=== PATIENT | female | born 1995 | race Hispanic/Latino ===

== ENCOUNTER 2021-08-09 09:51 | Outpatient (CLI) | payer OTHER, SELFPAY ==
--- NOTE | ~2021-08-09 | US_ITS ---
EXAMINATION: US venous doppler [facility] DATE: 08/09/2021 10:30 INDICATION: Lower limb swelling TECHNIQUE: Grayscale ultrasound images without and with compression and Doppler ultrasound images of the left lower extremity veins were obtained. COMPARISON: None. FINDINGS: The visualized portions of left common femoral vein, profunda (deep) femoral vein, femoral vein, popl iteal vein, peroneal veins, posterior tibial veins, gastrocnemius vein, lesser saphenous vein and gre ater saphenous vein outflow are patent. IMPRESSION: 1. No deep venous thrombosis in the left lower limb. Reviewed, dictated and finalized at location A.
== END 2021-08-09 09:52 | disposition home or self-care (01) ==
PROVIDERS: Visit Provider Obstetrics & Gynecology
DX: R60.0 Localized edema (principal)
CPT/HCPCS: 93971

== ENCOUNTER 2021-08-16 09:06 | Observation (INO) | payer OTHER, SELFPAY ==
[2021-08-16 09:31] VITALS: BP 90/68; PULSE 95
[2021-08-16 09:32] VITALS: BP 115/60; PULSE 105
[2021-08-16 09:33] VITALS: TEMP 36.2
[2021-08-16 09:45] VITALS: RESP 16; TEMP 36.2; BMI 38.0
--- NOTE | 2021-08-16 09:45 | OBADM ---
This patient, Aliyah Vegas, admitted to the OB room 116 for observation for suprapubic pain. Patient/family oriented to hospital policies and general routines including ID bracelet, bed and alarms, visiting hours, pain management, procedures, bathroom and other care routines, personal items, smoking policy, room service/diet, and visiting hours. Patient/Family are encouraged to report perceived risks to care and to ask questions if they do not understand what they are told or what they should do.
[2021-08-16 10:01] VITALS: BP 105/54; PULSE 88
[2021-08-16 10:57] LABS: Appearance Urine Clear (Clear); Bilirubin Urine Negative (Negative); Blood Urine Negative (Negative); Color Urine Yellow (Yellow); Glucose Urine UA Negative (Negative); Ketones Urine Negative (Negative); Leukocyte Esterase Ur 1+ LEU/UL (Negative); Nitrate Urine Negative (Negative); Protein Urine Negative (Negative); Specific Grav Ur 1.015 (1.001-1.035); Urobilinogen Urine 0.2 mg/dL (<2.0)
[2021-08-16 11:02] VITALS: BP 111/64; PULSE 88
[2021-08-16 11:14] LABS: Mucus Urine Rare /lpf; RBC Urine 0-2 /hpf (0-2); Squamous Epithelial Cell Urine Moderate /hpf (Few); WBC Urine 0-3 /hpf
[2021-08-16 11:18] LABS: Add Urine Microscopic? YES
--- NOTE | 2021-09-09 22:02 | PM.OBTRLD ---
OB - Triage/Final Diagnosis Visit Information Comments/Additional reasons for admission: I have assessed the risk for this patient, Aliyah Fonseca, and determined that she would benefit from observation care. Evaluation Laboratory results: Laboratory Tests 08/16/21 10:40 Urine Color Yellow Urine Appearance Clear Urine pH 7.0 Ur Specific [place] 1.015 Urine Protein Negative Urine Glucose (UA) Negative Urine Ketones Negative Ur Blood (Man) Negative Urine Nitrate Negative Urine Bilirubin Negative Urine Urobilinogen 0.2 Leukocyte Esterase Rfl 1+ H Urine RBC 0-2 Urine WBC 0-3 Ur Squamous Epith Cells Moderate H Urine Mucus Rare Final Diagnosis (1) Abdominal pain: Code(s): R10.9 - Unspecified abdominal pain Status: Acute
== END 2021-08-16 12:01 | disposition home or self-care (01) ==
PROVIDERS: Admitting Provider Obstetrics & Gynecology; Visit Provider Obstetrics & Gynecology
DX: O26.892 Other specified pregnancy related conditions, second trimester (principal); R10.9 Unspecified abdominal pain; Z3A.26 26 weeks gestation of pregnancy
CPT/HCPCS: 81001; G0378; G0379

== ENCOUNTER 2021-10-08 17:02 | Outpatient (CLI) | payer OTHER, SELFPAY ==
--- NOTE | 2021-10-08 17:02 | OBADM ---
This patient, Aliyah Fonseca, admitted to the OB room OB Post 116 for observation. Patient/family oriented to hospital policies and general routines including ID bracelet, bed and alarms, visiting hours, pain management, procedures, bathroom and other care routines, personal items, smoking policy, room service/diet, and visiting hours. Patient/Family are encouraged to report perceived risks to care and to ask questions if they do not understand what they are told or what they should do.
[2021-10-08 17:32] VITALS: BP 124/68; PULSE 94
[2021-10-08 17:39] VITALS: BMI 38.7
[2021-10-08 17:39] LABS: Basophils Percent Auto 0.3 % (0.2-1.2); Eosinophils Absolute Auto 0.1 K/mm3 (0-0.3); Eosinophils Percent Auto 0.4 % (0-4.4); Hematocrit 32.4 % (37.0-47.0); Hemoglobin 10.5 g/dL (12.0-15.0); Immature Granulocyte Absolute 0.19 K/mm3 (0.00-0.031); Immature Granulocyte Percent A 1.4 % (0-0.5); Lymphocytes Percent Auto 14.5 % (18.3-44.2); Mean Corpuscular HGB Conc 32.4 g/dl (32-36); Mean Corpuscular Hemoglobin 26.5 pg (26-34); Mean Corpuscular Volume 81.8 fl (80-100); Mean Platelet Volume 9.6 fl (7.4-10.4); Monocytes Absolute Auto 0.7 K/mm3 (0.1-0.6); Monocytes Percent Auto 5.4 % (2.6-8.5); Neutrophils Absolute Auto 10.8 K/mm3 (1.3-6.7); Platelet Count Result 238 k/mm3 (150-375); Red Blood Count 3.96 M/mm3 (4.2-5.4); Red Cell Distribution Width 15.8 % (11.5-14.5); White Blood Count 13.8 K/mm3 (4.5-10.0)
[2021-10-08 17:40] LABS: Appearance Urine Slightly Cloudy (Clear); Bilirubin Urine Negative (Negative); Blood Urine Negative (Negative); Color Urine Yellow (Yellow); Glucose Urine UA Negative (Negative); Ketones Urine 1+ mg/dL (Negative); Leukocyte Esterase Ur 2+ LEU/UL (NEGATIVE); Nitrate Urine Negative (Negative); Protein Urine Negative (Negative); Specific Grav Ur 1.025 (1.001-1.035); Urobilinogen Urine 0.2 mg/dL (<2.0); pH Urine 6.5 (5.0-9.0)
[2021-10-08 17:44] LABS: Bacteria Urine Trace /hpf; Mucus Urine Rare /lpf; RBC Urine 0-2 /hpf (0-2); Squamous Epithelial Cell Urine Moderate /hpf (Few); WBC Urine 16-20 /hpf (0-3)
[2021-10-08 17:46] VITALS: BP 117/99; PULSE 150
[2021-10-08 17:47] LABS: Alanine Aminotransferase 58 U/L (6-35); Albumin Level 3.4 g/dL (3.5-5.1); Alkaline Phosphatase 109 U/L (38-126); Anion Gap 9 mmol/L (8-16); Aspartate Amino Transferase 29 U/L (14-36); Bilirubin,Total 0.3 mg/dL (0.2-1.3); Blood Urea Nitrogen 8 mg/dL (7-17); Calcium 8.8 mg/dL (8.4-10.2); Carbon Dioxide 21 mmol/L (22-30); Chloride 106 mmol/L (98-107); Estimated Glomerular Filt Rate > 60; Glucose 119 mg/dL (65-110); Sodium 136 mmol/L (137-145); Uric Acid 5.1 mg/dL (2.5-7.5)
[2021-10-08 17:51] LABS: Add Urine Microscopic? YES
[2021-10-08 18:01] VITALS: BP 107/60; PULSE 86
[2021-10-08 18:16] VITALS: BP 111/67; PULSE 91
[2021-10-08 18:17] VITALS: BP 111/67; PULSE 91
[2021-10-08 18:21] LABS: Creatinine Urine 96.6 mg/dL; Total Protein Urine Random 7 mg/dL; Ur Ttl Prot Creatinine Ratio 0.07 mg/mg (0-0.20)
[2021-10-08 18:31] VITALS: BP 105/53; PULSE 89
== END 2021-10-08 18:48 | disposition home or self-care (01) ==
LOC: ANHOBOP 17:07 → ANHOBPP 10-14 06:22
PROVIDERS: Obstetrics & Gynecology; Visit Provider Obstetrics & Gynecology
DX: O13.9 Gestational [pregnancy-induced] hypertension without significant proteinuria, unspecified trimester (principal); Z3A.00 Weeks of gestation of pregnancy not specified
CPT/HCPCS: 36415; 59025; 80053; 81001; 82570; 84156; 84550; 85025; 87086; 87088; 99199

== ENCOUNTER 2021-10-18 16:01 | Outpatient (CLI) | payer OTHER, SELFPAY ==
--- NOTE | ~2021-10-18 | US_ITS ---
EXAMINATION: US venous doppler [facility] DATE: 10/18/2021 16:40 INDICATION: Left lower limb swelling TECHNIQUE: Thomas scale images without and with compression and Doppler images of the left lower extrem ity veins were obtained. COMPARISON: 08/09/2021 FINDINGS: The left common femoral vein, profunda femoral vein, femoral vein, popliteal vein, peroneal trunk, posterior tibial veins, and greater saphenous vein are patent. IMPRESSION: 1. Patent left lower extremity veins. No evidence of deep venous thrombosis. Reviewed, dictated and finalized at location B.
== END 2021-10-18 16:02 | disposition home or self-care (01) ==
PROVIDERS: Visit Provider Obstetrics & Gynecology
DX: R60.0 Localized edema (principal)
CPT/HCPCS: 93971

== ENCOUNTER 2021-11-06 22:40 | Outpatient (CLI) | payer OTHER, SELFPAY ==
[2021-11-06 23:16] VITALS: BP 110/70; PULSE 101
[2021-11-06 23:22] LABS: Basophils Absolute Auto 0.1 K/mm3 (0.0-0.1); Basophils Percent Auto 0.4 % (0.2-1.2); Eosinophils Absolute Auto 0.1 K/mm3 (0-0.3); Eosinophils Percent Auto 0.6 % (0-4.4); Hematocrit 31.3 % (37.0-47.0); Hemoglobin 10.2 g/dL (12.0-15.0); Immature Granulocyte Percent A 1.6 % (0-0.5); Lymphocytes Absolute Auto 2.32 K/mm3 (0.9-3.2); Lymphocytes Percent Auto 18.3 % (18.3-44.2); Mean Corpuscular HGB Conc 32.6 g/dl (32-36); Mean Corpuscular Volume 79.6 fl (80-100); Mean Platelet Volume 9.6 fl (7.4-10.4); Monocytes Percent Auto 7.5 % (2.6-8.5); Neutrophils Absolute Auto 9.1 K/mm3 (1.3-6.7); Neutrophils Percent Auto 71.6 % (45.5-73.1); Platelet Count Result 214 k/mm3 (150-375); Red Blood Count 3.93 M/mm3 (4.2-5.4); Red Cell Distribution Width 15.8 % (11.5-14.5); White Blood Count 12.7 K/mm3 (4.5-10.0)
[2021-11-06 23:23] LABS: Appearance Urine Clear (Clear); Bilirubin Urine Negative (Negative); Blood Urine Negative (Negative); Glucose Urine UA Negative (Negative); Ketones Urine Negative (Negative); Leukocyte Esterase Ur 2+ LEU/UL (NEGATIVE); Nitrate Urine Negative (Negative); Protein Urine Negative (Negative); Specific Grav Ur 1.015 (1.001-1.035); Urobilinogen Urine 0.2 mg/dL (<2.0)
[2021-11-06 23:27] LABS: Bacteria Urine Trace /hpf; Squamous Epithelial Cell Urine Many /hpf (Few)
[2021-11-06 23:28] LABS: Add Urine Microscopic? YES; Color Urine Light Yellow (Yellow)
[2021-11-06 23:30] VITALS: BP 121/82; PULSE 90
[2021-11-06 23:32] LABS: Alanine Aminotransferase 21 U/L (6-35); Albumin Level 3.4 g/dL (3.5-5.1); Alkaline Phosphatase 122 U/L (38-126); Anion Gap 12 mmol/L (8-16); Aspartate Amino Transferase 19 U/L (14-36); Bilirubin,Total 0.2 mg/dL (0.2-1.3); Blood Urea Nitrogen 8 mg/dL (7-17); Calcium 8.9 mg/dL (8.4-10.2); Carbon Dioxide 20 mmol/L (22-30); Chloride 104 mmol/L (98-107); Creatinine Urine 23.8 mg/dL; Estimated Glomerular Filt Rate > 60; Glucose 99 mg/dL (65-110); Potassium 3.8 mmol/L (3.4-5.0); Sodium 136 mmol/L (137-145); Total Protein Urine Random 12 mg/dL; Uric Acid 4.1 mg/dL (2.5-7.5)
[2021-11-06 23:45] VITALS: BP 118/75; PULSE 85
[2021-11-07] MEDS: ACETAMINOPHEN 500 MG TABLET 1000 MG PO (00:08)
[2021-11-07 00:39] VITALS: BMI 38.9
== END 2021-11-07 00:30 | disposition home or self-care (01) ==
LOC: ANHOBOP 22:45 → ANHOBPP 22:45
PROVIDERS: Advanced Practice Midwife; Visit Provider Obstetrics & Gynecology
DX: O14.93 Unspecified pre-eclampsia, third trimester (principal); Z3A.38 38 weeks gestation of pregnancy
CPT/HCPCS: 36415; 59025; 80053; 81001; 82570; 84156; 84550; 85025; 87086; 99199; A9270

== ENCOUNTER 2021-11-08 08:45 | Outpatient (NON) | payer OTHER, SELFPAY ==
[2021-11-08 08:45] VITALS: BMI 39.6
[2021-11-08 09:15] LABS: Collection Time Urine 24 HOURS
[2021-11-08 09:20] LABS: Total Volume 24 Hour Urine 1300 ml
[2021-11-08 09:23] LABS: Total Protein Urine 24 Hr 143 mg/24hr (28-141); Total Protein Urine Random 11 mg/dL
[2021-11-08 09:24] LABS: Creatinine Clearance Urine 79.1 ml/min (75-125); Creatinine Urine 44.9 mg/dL; Patient Weight 189 Lbs
== END 2021-11-08 08:46 | disposition home or self-care (01) ==
LOC: ANHOBOP 08:58
PROVIDERS: Visit Provider Obstetrics & Gynecology
DX: R80.9 Proteinuria, unspecified (principal)
CPT/HCPCS: 81050; 82575; 84156

== ENCOUNTER 2021-11-11 11:36 | Outpatient (CLI) | payer OTHER, SELFPAY ==
[2021-11-11 12:12] LABS: Hematocrit 34.2 % (37.0-47.0); Hemoglobin 10.9 g/dL (12.0-15.0); Mean Corpuscular HGB Conc 31.9 g/dl (32-36); Mean Corpuscular Hemoglobin 25.7 pg (26-34); Mean Corpuscular Volume 80.7 fl (80-100); Mean Platelet Volume 9.9 fl (7.4-10.4); Platelet Count Result 243 k/mm3 (150-375); Red Blood Count 4.24 M/mm3 (4.2-5.4); Red Cell Distribution Width 15.9 % (11.5-14.5); White Blood Count 14.3 K/mm3 (4.5-10.0)
[2021-11-12 10:39] LABS: Rapid Plasma Reagin Non-Reactive (NonReactive)
== END 2021-11-11 11:37 | disposition home or self-care (01) ==
LOC: ANHLAB 11:38
PROVIDERS: Visit Provider Obstetrics & Gynecology
DX: O34.211 Maternal care for low transverse scar from previous cesarean delivery (principal); Z3A.39 39 weeks gestation of pregnancy
CPT/HCPCS: 36415; 85027; 86592; 86850; 86900; 86901

== ENCOUNTER 2021-11-12 11:16 | Inpatient (IN) | payer OTHER, SELFPAY ==
[2021-11-12] VITALS (51 sets, daily range): BP systolic 88–129; BP diastolic 43–93; PULSE 77–107; RESP 16–27; TEMP 36.3–36.7; O2SAT 98–100; BMI 39.2
--- NOTE | 2021-11-12 11:16 | LDADM ---
This patient, Aliyah Fonseca, was admitted to Labor/Delivery/Recovery 120 on 11/12/21 at 11:16. Plans for labor, pain management and were discussed with patient. Patient/family oriented to hospital policies and general routines including ID bracelet, bed and alarms, visiting hours, pain management, procedures, bathroom and other care routines, personal items, smoking policy, room service/diet and guest tray routines, security routines, and visiting hours. Patient/Family are encouraged to report perceived risks to care and to ask questions if they do not understand what they are told or what they should do. See OBIX for further documentation.
[2021-11-12] MEDS: LACTATED RINGERS 1,000 ML 999 ML IV CONT (12:04)
--- NOTE | 2021-11-12 12:56 | P.PNAN_ITS ---
Anes - Eval Pre Procedure Procedure: Operation Date: 11/12/21 13:30 Proposed Procedures p Repeat Section - Nini Bull MD Date/Time: 11/12/21 12:56 Surgeon: Dr. Bull Preop Diagnosis: Previous Section Pre Op Diagnosis: c/s Patient Data Age: 26 Gender: F Height: 1.47 m Weight: 85 kg Last Vital Signs Pulse 98 11/12/21 12:46 BP 88/43 L 11/12/21 12:46 Allergies Allergy/AdvReac Type Severity Reaction Status Date / Time Penicillins Allergy Hives Verified 10/17/21 15:47 Home Medications Medication Instructions Recorded Confirmed Type vit no.95-ferrous 1 tablet PO DAILY 08/16/21 11/12/21 History fumarate 28 mg-folic acid 800 mcg tablet () ferrous sulfate 140 mg (45 mg 140 mg PO DAILY 10/17/21 10/17/21 History iron) tablet,extended release Patient hx anesthesia problems: none Family hx anesthesia problems: none Results Review: All pre-operative results and documents have been reviewed as part of the pre- operative evaluation. [facility] Past Medical History Medical History (Updated 11/12/21 @ 12:52 by Barb Lombardi CRNA) Kidney stones, calcium oxalate Family History Family History (Updated 10/17/21 @ 15:50 by Tamiko Abrams RN) Grandparent Hypertension Father Diabetes mellitus Mother High cholesterol Social History Social History Smoking status: Never smoker Substance use: never Spiritual care concerns: No Exam Day of Procedure 11/12/21 12:56 Patient weight: obese (bmi 39)
[2021-11-12] MEDS: LACTATED RINGERS 1,000 ML 125 ML IV CONT (13:16)
--- NOTE | 2021-11-12 13:21 | PM.IMHP ---
H&P: HPI History of Present Illness Date/Time: 11/12/21 13:21 Chief Complaint: repeat CS Narrative: Aliyah is a 26yo here for repeat CS at 39.2. uncomplicated except by a few elevated BPs, normal PIH labs. Review of Systems Review of Systems: All systems reviewed & are unremarkable except as noted in HPI and below PMFSH Past Medical History Medical History (Updated 11/12/21 @ 12:52 by Barb Lombardi CRNA) Kidney stones, calcium oxalate Family History Family History (Updated 10/17/21 @ 15:50 by Tamiko Abrams RN) Grandparent Hypertension Father Diabetes mellitus Mother High cholesterol Social History Social History Smoking status: Never smoker Substance use: never Spiritual care concerns: No Meds Home Medications and Allergies Home Medications Medication Instructions Recorded Confirmed Type vit no.95-ferrous 1 tablet PO DAILY 08/16/21 11/12/21 History fumarate 28 mg-folic acid 800 mcg tablet () ferrous sulfate 140 mg (45 mg 140 mg PO DAILY 10/17/21 10/17/21 History iron) tablet,extended release Allergies Allergy/AdvReac Type Severity Reaction Status Date / Time Penicillins Allergy Hives Verified 10/17/21 15:47 Vital Signs Vital Signs - 24 hr 11/12/21 12:03 11/12/21 12:16 11/12/21 12:30 Pulse Rate 95 102 H 91 Blood Pressure 112/71 112/71 119/71 11/12/21 12:46 11/12/21 13:00 11/12/21 13:16 Pulse Rate 98 91 96 Blood Pressure 88/43 L 112/75 121/85 Exam Const: General: no acute distress Resp: Effort & Inspection: normal respiratory effort Auscultation: clear to auscultation bilaterally Cardio: Rate: regular rate Rhythm: regular rhythm GI: GI Palp: Yes Soft to palpation Extrem: General: normal to inspection Assessment and Plan Assessment and plan (1) Previous section: Code(s): Z98.891 - History of uterine scar from previous surgery Status: Acute (2) Obesity (BMI 30-39.9): Code(s): E66.9 - Obesity, unspecified Status: Acute Plan repeat section, consented, discussed RBA. Will proceed.
--- NOTE | 2021-11-12 13:26 | WPDHPUPDATE1 ---
History and Physical Update Update Date/Time: 11/12/21 13:26 History and Physical has been reviewed, including an updated exam of the patient. There are NO changes in the patient's condition. Risks, benefits, and alternatives have been discussed and questions answered. Patient agrees to proceed with procedure.
[2021-11-12] MEDS: CLINDAMYCIN 900 MG/D5W 50 ML 900 MG/50 ML PIGGYBACK 50 MG IVPB (13:34)
--- NOTE | 2021-11-12 13:36 | P.PNAN_ITS ---
Anes - Eval Final PreProcedure Day of Procedure 11/12/21 13:36 Patient weight: obese Heart: regular rate and rhythm Lungs: clear to auscultation and normal air movement Airway: Mallampati scale class II Neurological: alert and oriented Last oral intake: >/= 8 hours ASA classification: III Emergent: no Anesthetic plan: proceed Anesthesia type and monitoring: regional spinal Results Review: All pre-operative results and documents have been reviewed as part of the pre- operative evaluation. Informed Consent: The patient's anesthetic plan and its attendant risks and benefits were discussed with the patient/family/POA. Questions were solicited and answers provided to the satisfaction of the patient/family/POA.
--- NOTE | 2021-11-12 15:06 | P.PCNOB_ITS ---
OB - Delivery Note Procedure Delivery date: 11/12/21 Procedure: Procedures Operation Date: 11/12/21 13:30 <No data on this case meets the specified criteria> Repeat Low Transverse Section Events: Previous Delivery Route of delivery: Specimen: Yes (placenta) Quantitative Blood Loss (ml): 490 Anesthesia type: Spinal Disposition: Floor Complications: none Narrative: The patient was taken to the OR and received spinal anesthesia. She was placed in dorsal supine position with left lateral tilt. SCDs and potter were placed. She was prepped and draped in the normal sterile fashion. A Pfannensteil skin incision was made and carried through to the underlying layer of fascia. The fascia was incised in the midline and then extended laterally using Alvarez scissors. The muscles were in the midline and the peritoneum was entered bluntly. The peritoneal incision was extended inferiorly and superiorly with care to avoid the bladder. The bladder blade was then inserted, the vesicouterine peritoneum was grasped, incised with Metzenbaum scissors, and a bladder flap created. The bladder blade was reinserted. A low transverse uterine incision was made with a scalpel and extended bluntly. AROM was performed and fluid was noted to be clear. The head was delivered, followed by the remainder of the baby. The baby's oropharynx was suctioned. After 30 seconds, the cord was clamped and cut and the was handed off. Cord blood was obtained and the placenta was then removed manually. The uterus was exteriorized. A moist lap sponge was used to curette the endometrium. The uterine incision was then closed with one layer of 0-Vicryl in a running, locking fashion. Good hemostasis was noted. The posterior cul de sac was irrigated with normal saline and cleared of all clot and debris. The uterus was returned to the abdomen. Both lateral gutters were then irrigated. The rectus muscles were inspected and found to be hemostatic. The fascia was reapproximated using 0-Vicryl in running fashion. The subcutaneous tissue was irrigated with normal saline and made hemostatic with Bovie electrocautery. The subcutaneous tissue was reapproximated with a layer of running 2-0 plain gut. The skin was then closed with absorbable alejandro. Steri strips and a bandage were applied. The uterus was evacuated. The patient tolerated the procedure very well. All counts were correct. She was taken to the recovery room in good condition. [place] Baby Date of : 11/12/21 Time of : 14:26 Weeks of gestation at delivery: 39 gender: Female Weight (pounds): 7 Weight (ounces): 1 presentation: vertex Placenta delivery description: Manual Removal Cord Vessel Description: 3 Vessels and Delayed Cord Clamping score one minute: 9 score five minutes: 9
[2021-11-12] MEDS: OXYTOCIN 30 UNITS/NS 500 ML 30 UNITS/500 ML BAG 125 UNITS IV CONT (16:21)
[2021-11-12] MEDS: LORATADINE 10 MG TABLET PO (16:39)
--- NOTE | 2021-11-12 17:41 | OBPPTRN ---
6723 Patient transferred to post room #279 via stretcher. Support person present. Oriented to unit, room, information board, rooming in, admission packet and security measures. Patient verbalizes understanding.
[2021-11-12] MEDS: ONDANSETRON INJ 4 MG/2 ML VIAL IV PUSH (17:45)
[2021-11-12] MEDS: DEXTROSE 5%/0.45% SOD CHL 1,000 ML 125 ML IV CONT (20:46)
[2021-11-12] MEDS: METOCLOPRAMIDE HCL INJ 10 MG/2 ML VIAL 5 MG IV PUSH (21:06)
[2021-11-13 00:10] VITALS: BP 102/47; PULSE 83; RESP 16; TEMP 35.8
[2021-11-13 04:50] VITALS: BP 102/63; PULSE 89; RESP 18; TEMP 36.3
[2021-11-13 05:10] LABS: Basophils Absolute Auto 0.1 K/mm3 (0.0-0.1); Basophils Percent Auto 0.3 % (0.2-1.2); Eosinophils Percent Auto 0.1 % (0-4.4); Hematocrit 27.4 % (37.0-47.0); Hemoglobin 8.2 g/dL (12.0-15.0); Immature Granulocyte Absolute 0.14 K/mm3 (0.00-0.031); Lymphocytes Absolute Auto 1.77 K/mm3 (0.9-3.2); Lymphocytes Percent Auto 12.3 % (18.3-44.2); Mean Corpuscular HGB Conc 29.9 g/dl (32-36); Mean Corpuscular Hemoglobin 26.1 pg (26-34); Mean Corpuscular Volume 87.3 fl (80-100); Mean Platelet Volume 9.9 fl (7.4-10.4); Monocytes Absolute Auto 1.3 K/mm3 (0.1-0.6); Monocytes Percent Auto 9.2 % (2.6-8.5); Neutrophils Percent Auto 77.1 % (45.5-73.1); Platelet Count Result 183 k/mm3 (150-375); Red Blood Count 3.14 M/mm3 (4.2-5.4); Red Cell Distribution Width 16.2 % (11.5-14.5); White Blood Count 14.3 K/mm3 (4.5-10.0)
[2021-11-13 05:45] LABS: Anisocytosis 2+ (NORMAL); Hypochromasia 1+ (NORMAL); Macrocytosis 1+ (NORMAL); Platelet Estimate Adequate (Adequate); Schistocytes None Seen (NORMAL)
--- NOTE | 2021-11-13 06:35 | P.PNOB_ITS ---
OB - PN: Subj Subjective Date/time seen: 11/13/21 06:35 Patient comments: no complaints and pain well controlled baby status: nursing well Michie feeding status: exclusively breast feeding Narrative: POD 1 from primary CS. Doing well. Normal lochia. Eating, ambulating, potter out. N/V overnight, resolved. OB - PN: Obj Data Labs CBC & Chem 7: 11/13/21 04:56 Labs: Laboratory Results - last 24 hr 11/13/21 04:56 WBC 14.3 H RBC 3.14 L Hgb 8.2 L Hct 27.4 L MCV 87.3 D MCH 26.1 MCHC 29.9 L RDW 16.2 H Plt Count 183 MPV 9.9 Immature Gran % (Auto) 1.0 H Neut % (Auto) 77.1 H Lymph % (Auto) 12.3 L Mcduffie % (Auto) 9.2 H Eos % (Auto) 0.1 Baso % (Auto) 0.3 Lymph # (Auto) 1.77 [place]ff[place] # (Auto) 1.3 H Eos # (Auto) 0.0 Baso # (Auto) 0.1 Abs Immat Gran (auto) 0.14 H Absolute Neuts (auto) 11.0 H Absolute Nucleated RBC 0.0 Nucleated RBC % 0.0 Platelet Estimate Adequate Hypochromasia 1+ Anisocytosis 2+ Macrocytosis 1+ Schistocytes None seen OB - PN A/P Plan day: 1 Plan: routine care Time Spent With Patient Time: Total time spent is greater than 50% in coordination of care (as documented) at patient's floor/unit and/or counseling patient: Exam Narrative: NAD abdomen soft, appropriately tender, incision bandaged Extremities nontender with 1+ edema
[2021-11-13 07:35] VITALS: BP 107/69; PULSE 88; RESP 16; TEMP 36.9; O2SAT 100
[2021-11-13] MEDS: IBUPROFEN 600 MG TABLET PO ×3 (08:15→22:21)
[2021-11-13] MEDS: POLYSACCHARIDE IRON COMPLEX 150 MG CAPSULE PO ×2 (08:16→17:00)
[2021-11-13] MEDS: MULTIVIT/MIN/PREN/FOL AC/IRON TABLET 1 TAB PO (08:16)
[2021-11-13] MEDS: SIMETHICONE 80 MG TAB.CHEW PO (08:16)
[2021-11-13] MEDS: ACETAMINOPHEN 325 MG TABLET 650 MG PO ×3 (08:19→22:20)
--- NOTE | 2021-11-13 09:02 | P.PNAN_ITS ---
Anes-Prog Note L&D Date/Time: 11/13/21 09:02 Comfortable throughout: section Neuraxial method: spinal Epidural/Spinal procedure site: tender Neuro status: Neuro function grossly intact. Cardiovascular status: normal Respiratory status: normal Airway patency: baseline Mental status: baseline Post-Op hydration status: normal Vital Signs: Last Vital Signs Temp 97.3 F L 11/13/21 04:50 Pulse 89 11/13/21 04:50 Resp 18 11/13/21 04:50 BP 102/63 11/13/21 04:50 Pulse Ox 99 11/12/21 17:30 O2 Del Method Room Air 11/13/21 08:15 Pain score (VAS): 2 I/O: Intake & Output 11/12/21 11/13/21 11/13/21 23:59 07:59 15:59 Intake Total 530 2100 Output Total 850 1350 Balance -320 750 Post-procedural complaints: pruritis severe, treatment refractory (medicated X 1, persistent itching. resolved this morning) and other (large bruised area to back & back pain. pt reports difficult spinal insertion by TYRONE, FORENSIC SERGEANT, & multiple attempts by .pt does report that she had a difficult insertion of epidural on previous ) Patient feedback: Patient satisfied with anesthetic care.
--- NOTE | 2021-11-13 09:06 | WPDANLDNPN2 ---
Anes-Prog Note L&D-Neuraxial Date/Time: 11/13/21 09:06 Neuraxial medications: intrathecal PF morphine Opiod-related complaints: pruritis severe, treatment refractory Patient feedback: Patient satisfied with post-operative pain management. Comments: back pain. see previous note
[2021-11-13 12:10] VITALS: BP 104/57; PULSE 82; RESP 18; TEMP 36; O2SAT 99
[2021-11-13] MEDS: TETANUS,DIPHTHERIA,AC PERTUSSIS ADULT (0.5 ML) BOOSTRIX IM (15:50)
--- NOTE | 2021-11-13 15:50 | PC.NURSE ---
0922 - Introductions were made, then consulted with patient to assess needs related to . Mother led the conversation with her?plans to feed?her and the?experience so far. Resources provided for inpatient and outpatient services using a resource guide and mom/baby guide. Mother voiced understanding of information and will call for assistance when her returns to the room to breastfeed. Reported to primary RN. [phone] Consulted with patient to assess needs related to . Mother demonstrated working with her , breast, nipples and how to protect the nipples with an optimal deep latch, good positioning after reviewing the education. Encouraged understanding the benefits of skin to skin, responding to feeding cues, frequencies of feeding 8-12 times in 24 hours (approximately 2-3 hours), duration of feedings, milk production, intake/output feeding sheet and signs of adequate intake encouraging swallowing at the breast. Reviewed positioning and alignment, supporting breast, off-centered (asymmetrical latch) and leading with the chin with big open wide gape. Infant latched optimally to the right breast in cross cradle position. Education given to mother of how to visualize suck/swallow ratios and listen for drinking at the breast. was able to maintain latch without discomfort to mother. Nipple care reviewed with optimal latch, good positioning and to have clean hands when touching the nipple/breast. Resources used to facilitate learning were used from the visual handout, tool, mom and baby guide. Mother voiced understanding of the education shared, calling for assistance if the infant does not latch or if there is discomfort with . [phone] Mother has latched to the left breast with an unconventional position and state the latch is painful. Assessment of less than 90 degree latch is seen and was detached. Mother and repositioned, reviewed positioning and ear, shoulder, hip alignment, supporting the breast, asymmetrical latch (off-center), and leading with the chin with a big open side gape. Infant latched optimally to the left breast in football position. Education given to mother of how to visualize suck/swallow ratios and she verbalizes hearing swallowing at the breast with the ka sound. was able to maintain latch without discomfort to mother. Nipple care reviewed with optimal latch and good positioning. Mother voiced understanding of responsive feedings, stimulating with skin to skin, hand expressed colostrum, massage touch, talking to to encourage if it has been 2 -3 hours since the start of the last , to call if infant does not latch or there is discomfort with . Reported to the primary RN.
[2021-11-13] MEDS: LANOLIN (LANSINOH) 7.5 GM CREAM 1 APPLIC TOPICAL (16:00)
[2021-11-13] MEDS: DOCUSATE SODIUM 100 MG CAPSULE PO (16:00)
[2021-11-13 20:16] VITALS: BP 110/69; PULSE 84; RESP 18; TEMP 36.3; O2SAT 99
[2021-11-14] MEDS: IBUPROFEN 600 MG TABLET PO ×2 (04:22→11:22)
[2021-11-14] MEDS: ACETAMINOPHEN 325 MG TABLET 650 MG PO ×2 (04:23→11:33)
--- NOTE | 2021-11-14 07:00 | PC.NURSE ---
Pt introductions made and plan of care discussed per post , post op c section, pain management, breast feeding, daily care activities and pending discharge to home. PT and spouse both recipients of such instructions and a barrier to learning identified at this time with fob as he speaks fluent Welsh and little Danish.PT received this shift instructions per one to one discussion, mom baby care guide and demonstrations. Pt verbalized understanding of such care.
[2021-11-14 07:55] VITALS: BP 114/60; PULSE 88; RESP 18; TEMP 36.6; O2SAT 100
--- NOTE | 2021-11-14 08:09 | PM.OBPNVD ---
OB - PN: Subj Subjective Date/time seen: 11/14/21 08:09 Patient comments: no complaints, pain well controlled, incisional pain, tolerating diet and flatus present OB - PN: Obj Data Labs CBC & Chem 7: 11/13/21 04:56 OB - PN A/P Plan day: 2 Plan: routine care Comments: POD#2 LTCS - no problems, Time Spent With Patient Time: Total time spent is greater than 50% in coordination of care (as documented) at patient's floor/unit and/or counseling patient: Exam Const: General: comfortable, no acute distress and alert Resp: Effort & Inspection: normal respiratory effort Auscultation: no crackles, no rales and no rhonchi Cardio: Rate: regular rate Heart sounds: no click, no murmurs and no rubs GI: Inspection: non-distended GI Palp: No Tenderness to palpation present (GI) Auscultation: normal bowel sounds Other: Incision - CDI Extrem: General: normal to inspection, no pedal edema and no calf tenderness
--- NOTE | 2021-11-14 08:10 | P.DS_ITS ---
DS: Admitting Diagnosis Discharge Date November 14 2021 Admitting Diagnosis term OB - DS: Summary OB Procedures : NST, PIH Mgmt and Ultrasound OB Procedures Intrapartum: OB Procedures: : None Peripartum Data Procedures: Procedures Operation Date: 11/12/21 13:30 Actual Procedure Side Surgeon p Repeat Section Nini Bull MD Time Spent with Patient Time attestation: Total time spent providing and/or coordinating discharge services: Discharge Plan Discharge Discharging Clinician: Flaco Mixon Patient Disposition: Home, Self-Care Activity: pelvic rest Diet: regular Patient Instructions: Antibiotic Form Stand Alone Forms: General Discharge Information Follow-up/Referrals: Flaco Mixon MD [Physician] - Discharge Medications: New hydrocodone-acetaminophen 5-325 mg tablet 1 tablet PO Q4H PRN (Reason: pain) Qty: 25 0RF Continued PNV cmb#95-ferrous fumarate-FA [] 28 mg iron- 800 mcg Tablet 1 tablet PO DAILY ferrous sulfate 140 mg (45 mg iron) Tablet Extended Release 140 mg PO DAILY Rx Instructions: Unsure of dosage Date of admission: 11/12/21 11:16 Primary Care Provider: PHYSICIAN,ACCOUNTS RECEIVABLE ACCOUNTANT Admitting Provider: Nini Bull Attending physician on admission: Nini Bull Condition: Stable
[2021-11-14 11:00] VITALS: PULSE 88; RESP 18; O2SAT 100
[2021-11-14] MEDS: MULTIVIT/MIN/PREN/FOL AC/IRON TABLET 1 TAB PO (11:00)
[2021-11-14] MEDS: DOCUSATE SODIUM 100 MG CAPSULE PO (11:22)
[2021-11-14] MEDS: POLYSACCHARIDE IRON COMPLEX 150 MG CAPSULE PO (11:30)
--- NOTE | 2021-11-14 13:00 | PC.NURSE ---
PT received discharged instructions per protocol and verbalized understanding of such care.
--- NOTE | 2021-11-14 13:32 | PC.NURSE ---
PT discharged to home ambulatory accompanied by spouse and and taken to waiting car. follow up appts confirmed
--- NOTE | 2021-11-14 13:51 | PC.NURSE ---
[phone] Mother led the conversation with her experience and plan to feed her so far and her ability to independently latch optimally without discomfort. Reminded parents to use good handwashing technique to prevent infection. Mother is feeding appropriately for growth of and understands stimulating to eat if needed. Infant has had appropriate feedings in the last 24 hours meets the outcomes for weight, output and jaundice at this time. Mother states she is confident to continue effectively her infant at home or when to call for assistance and denies any additional assistance or education at this time. Reinforced understanding of milk production, transition of milk, signs of adequate intake, prevention/relief of engorgement, responsive after visualizing feeding cues, the different methods of stimulating infant to breastfeed 2-3 hours after the start of the last feeding, community resources, medication information reviewed per [employer] and when to call a provider using the resource of the mom and baby guide/[facility] website. Mother voiced understanding of the education shared. Reported to the primary RN.
[2021-11-15 09:54] VITALS: BP 120/80; PULSE 83; RESP 20; TEMP 37.5; O2SAT 100
== END 2021-11-14 13:32 | disposition home or self-care (01) | DRG 540 ==
LOC: ANHLDR 16:33 → ANHOB2 17:38
PROVIDERS: Admitting Provider Obstetrics & Gynecology; Visit Provider Obstetrics & Gynecology
PROC: 10D00Z1 Extraction of Products of Conception, Low, Open Approach (ICD-10-PCS; CPT 59514; principal; 2021-11-12 13:30)
DX: O34.219 Maternal care for unspecified type scar from previous cesarean delivery (principal); O99.214 Obesity complicating childbirth; Z23 Encounter for immunization; Z88.0 Allergy status to penicillin; Z3A.39 39 weeks gestation of pregnancy; Z37.0 Single live birth
CPT/HCPCS: 36415; 85025; 85027; 86592; 86850; 86900; 86901; 90471; 90686; 90715; A9270; G0008; J1100; J1580; J1885; J2274; J2370; J2405; J2590; J2765; J3010; J7120